=== PATIENT | female | born 1960 | race Caucasian/White ===

== ENCOUNTER 2020-11-07 13:00 | Outpatient (RCR) | payer BC ==
[2020-10-31 16:37] VITALS: BP 130/73; PULSE 76; TEMP 98.7
[~2020-11-07] VITALS: Ht 165.1 cm; Wt 67.8 kg
[~2020-11-07 13:00] MED LIST: AMARYL4 MG PO; FARXIGA5 PO; GLUCOPHAGE500 MG/TAB PO; LEXAPRO 5MG5 MG PO; ZESTRIL 5MG5 MG PO
--- NOTE | 2020-11-07 13:06 | NUR ---
Pt arrived fro second iron infusion.As speaking with patient,she reports after last infusion she had cold sweats,dizziness and vomiting upon arrival to home.This nurse called and reported to LADI Lopez.Ordered to cancel further infusions.
== END 2020-11-07 13:10 | disposition home or self-care (01) ==
LOC: EUO 13:00
DX: D50.9 Iron deficiency anemia, unspecified (principal)
CPT/HCPCS: J2916

== ENCOUNTER 2020-11-27 14:58 | Outpatient (CLI) | payer BC ==
[~2020-11-27] VITALS: Ht 165.1 cm; Wt 68.6 kg
[2020-11-27 15:26] VITALS: BP 151/67; PULSE 84; TEMP 99.1
--- NOTE | 2020-11-27 16:10 | NUR ---
Pt tolerated infusion over 30 mins without issue. She states she does not wish to remain in dept for monitoring for reaction, stating she wishes to go home now so she can beat traffic for her drive. IV DC'd with catheter intact.
== END 2020-11-27 17:17 | disposition home or self-care (01) ==
LOC: EUO 14:58
DX: D50.9 Iron deficiency anemia, unspecified (principal)
CPT/HCPCS: J1756

== ENCOUNTER 2021-01-08 16:30 | Outpatient (RCR) | payer BC ==
[2020-12-25 16:00] VITALS: BP 121/67; PULSE 81; TEMP 98.3
[2020-12-29 16:00] VITALS: BP 100/53; PULSE 83; TEMP 98
[2021-01-02 15:59] VITALS: BP 130/59; PULSE 82; TEMP 98.7
[2021-01-05 17:37] VITALS: BP 144/51; PULSE 82; TEMP 98.1
[~2021-01-08] VITALS: Ht 165.1 cm; Wt 68.0 kg
[2021-01-08 17:02] VITALS: BP 146/62; PULSE 78; TEMP 98.4
== END 2021-01-08 18:47 | disposition home or self-care (01) ==
LOC: EUO 16:30
DX: Z79.899 Other long term (current) drug therapy (principal)
CPT/HCPCS: J1756

== ENCOUNTER 2022-10-08 09:56 | Outpatient (RCR) | payer BC ==
[~2022-10-08] VITALS: Ht 157.5 cm; Wt 68.3 kg
[~2022-10-08 09:56] MED LIST changes: +ASPIRIN E.C. 8181 MG PO; +FARXIGA10 PO; +LEXAPRO 10MG10 MG PO; +MEDROL 4MG DOSPA4 MG PO; +MOUNJARO2.5 MG/0.5 SQ; +PLAVIX 75MG TAB75 MG PO; +PROAIR HFA0.09 MG/AC IH; +TAMIFLU 75MG75 MG PO; +TRELEGY ELLIPT1 EACH IH; +VITAMIN D 50,1.25 MG PO; +ZESTRIL 10MG10 MG PO
[2022-10-08 10:21] VITALS: BP 150/81; PULSE 89; TEMP 98.5
== END 2022-10-12 ==
LOC: EUO
DX: Z51.81 Encounter for therapeutic drug level monitoring (principal)
CPT/HCPCS: J1756

== ENCOUNTER 2022-10-22 15:30 | Outpatient (RCR) | payer BC ==
[2022-10-15 09:40] VITALS: BP 172/80; PULSE 92; TEMP 98.7
[2022-10-18 15:46] VITALS: BP 98/64; PULSE 88; TEMP 98.3
--- NOTE | 2022-10-18 16:08 | NUR ---
Pt tolerated venofer infusion without issue. IV DC'd, site wrapped with coban. Pt exits dept with steady gait.
[2022-10-20 15:46] VITALS: BP 171/87; PULSE 94; TEMP 98.5
[~2022-10-22] VITALS: Ht 157.5 cm; Wt 68.3 kg
[2022-10-22 15:33] VITALS: BP 126/59; PULSE 68; TEMP 98
== END 2022-10-22 16:56 | disposition home or self-care (01) ==
LOC: EUO 15:30
DX: Z51.81 Encounter for therapeutic drug level monitoring (principal)
CPT/HCPCS: J1756

== ENCOUNTER → 2022-11-16 | Outpatient (CLI) | payer BC | LOC: COL.RAD 14:23 | DX: I77.1 Stricture of artery (principal); T82.855A Stenosis of coronary artery stent, initial encounter; Z98.890 Other specified postprocedural states; Z98.62 Peripheral vascular angioplasty status | CPT/HCPCS: Q9967 ==